=== PATIENT | male | born 1975 ===

== ENCOUNTER 2018-01-11 13:49 | Inpatient (IN) | payer OTHER ==
[~2018-01-11] VITALS: Ht 172.7 cm; Wt 111.1 kg
[2018-01-11] MEDS ORDERED: ADVIL100 MG PO (14:22)
[2018-01-17] MEDS ORDERED: DOCUSATE SODIU100 MG PO (11:55)
[2018-01-17] MEDS ORDERED: AMOX-CLAV 875-1 EACH PO (11:55)
[2018-01-17] MEDS ORDERED: GABAPENTIN800 MG PO (11:55)
[2018-01-17] MEDS ORDERED: PERCOCET 5-3251 EACH PO (11:55)
[2018-01-17] MEDS ORDERED: CLONAZEPAM1 MG PO (11:55)
== END 2018-01-17 14:47 | disposition home or self-care (01) | DRG 520 ==
LOC: O/R 01-16 04:15 → SURG 01-16 07:00 → PED 01-16 10:39 → SURG 01-16 13:48 → PED 01-17 14:47
PROVIDERS: Orthopaedic Surgery Orthopaedic Surgery of the Spine
PROC: 0SB20ZZ Excision of Lumbar Vertebral Disc, Open Approach (ICD-10-PCS; 2018-01-16)
PROC: 00NY0ZZ Release Lumbar Spinal Cord, Open Approach (ICD-10-PCS; principal; 2018-01-16 07:00)
DX: M51.16 Intervertebral disc disorders with radiculopathy, lumbar region (principal); M47.26 Other spondylosis with radiculopathy, lumbar region; M48.061 Spinal stenosis, lumbar region without neurogenic claudication